=== PATIENT | female | born 1990 | race Caucasian/White ===

== ENCOUNTER 2025-04-05 11:18 | Emergency (ER) | payer MEDICAID ==
[~2025-04-05] VITALS: Ht 160 cm; Wt 95.5 kg
[2025-04-05 11:37] VITALS: TEMP 98.6
[2025-04-05 12:26] LABS: APPEARANCE,URINE HAZY (CLEAR); GLUCOSE, URINE (UA) NEGATIVE (NEGATIVE); LEUKOCYTE ESTERASE ,URINE MODERATE (NEGATIVE); NITRATE,URINE NEGATIVE (NEGATIVE); OCCULT BLOOD,URINE TRACE (NEGATIVE); SPECIFIC GRAVITIY, URINE 1.028 (1.003-1.030)
[2025-04-05 12:29] LABS: HCG,QUAL URINE NEGATIVE (NEGATIVE)
[2025-04-05 12:36] LABS: SQUAMOUS EPITHELIAL CELL,UR Many /LPF (None Seen)
[2025-04-05 15:59] LABS: PLATELET COUNT (AUTO) 251 K/uL (150-450); RED BLOOD CELL COUNT(AUTO) 4.94 MIL/uL (4.00-5.20); RED CELL DISTRIBUTION WIDTH 12.9 % (11.5-14.5); WHITE BLOOD COUNT (AUTO) 6.2 K/uL (4.5-11.0)
[2025-04-05] MEDS: CEPHALEXIN MONOHYDRATE 500 MG CAPSULE PO ONE (16:16)
[2025-04-05] MEDS: KETOROLAC TROMETHAMINE 30 MG/ML VIAL IM ONE (16:16)
[2025-04-05] MEDS: LIDOCAINE 5% TRANSDERMAL PATCH TD ONE (16:17)
[2025-04-05 16:23] LABS: CALCIUM, TOTAL 8.9 mg/dL (8.8-10.5); CREATININE 0.52 mg/dL (0.60-1.30); GLOMERULAR FILTR. RATE CALC > 60 mL/min (>60); GLUCOSE,RANDOM 149 mg/dL (70-110); SODIUM SERUM 138 mmol/L (136-145); UREA NITROGEN, BLOOD 8 mg/dL (7-18)
[2025-04-05 16:30] VITALS: BP 119/63; PULSE 68; RESP 16; O2SAT 99
[2025-04-05] MEDS ORDERED: CYCL-448 PO (16:33)
[2025-04-05] MEDS ORDERED: CEPH-558 PO (16:33)
[2025-04-05] MEDS ORDERED: LIDO-57 TP (16:33)
== END 2025-04-05 16:50 | disposition home or self-care (01) ==
LOC: EMS 11:18
DX: G89.29 Other chronic pain (principal); M54.50 Low back pain, unspecified; N39.0 Urinary tract infection, site not specified
CPT/HCPCS: 99284; 80048; 81001; 85025; 87077; 87086; 36415; 72100; 96372; 84703; J1885; 87186